=== PATIENT | male | born 1950 | race Caucasian/White ===

== ENCOUNTER 2021-10-11 21:13 | Inpatient (IN) | payer MEDICARE ==
[~2021-10-11] VITALS: Ht 177.8 cm; Wt 117.9 kg
[~2021-10-11 21:13] MED LIST: CEPH500 PO; SULTRIDS PO
[2021-10-11 22:44] LABS: BASOPHILS ABSOLUTE AUTO 0.05 K/mm3 (0.00-0.23); BASOPHILS PERCENT AUTO 0 % (0-2); EOSINOPHILS ABSOLUTE AUTO 0.35 K/mm3 (0.00-0.68); EOSINOPHILS PERCENT AUTO 2 % (0-6); Hematocrit 46.5 % (37.0-53.0); Hemoglobin 15.8 g/dL (13.5-17.5); IMMATURE GRAN ABSOLUTE AUTO 0.15 K/mm3 (0.00-0.10); IMMATURE GRAN PERCENT AUTO 1 % (0-1); LYMPHOCYTES ABSOLUTE AUTO 3.42 K/mm3 (0.84-5.20); LYMPHOCYTES PERCENT AUTO 20 % (21-46); MONOCYTES PERCENT AUTO 6 % (4-13); Mean Corpuscular HGB 30.2 pg (26.0-34.0); Mean Corpuscular Volume 89 fL (80-100); Mean Platelet Volume 10.7 fL (9.1-12.4); NEUTROPHILS ABSOLUTE AUTO 11.92 K/mm3 (1.96-9.15); NEUTROPHILS PERCENT AUTO 71 % (41-73); Platelet Count 246 K/mm3 (150-400); RDW Coefficient Variation 14.2 % (11.7-14.2); RDW Standard Deviation 46.3 fL (35.1-46.3); Red Blood Cell Count 5.24 M/mm3 (4.30-5.90); White Blood Cell Count 16.89 K/mm3 (4.00-11.30)
[2021-10-11 23:20] LABS: Albumin, Blood 3.6 g/dL (3.4-5.0); Bun/Creatinine Ratio 14.5 (12.0-20.0); Calcium, Blood 8.8 mg/dL (8.5-10.1); Creatinine, Blood 0.9 mg/dL (0.60-1.20); Globulin, Blood 3.6 g/dL (2.2-4.0); Potassium, Blood 3.8 mmol/L (3.5-5.5); Total Protein, Blood 7.2 g/dL (6.4-8.2)
[2021-10-12] MEDS ORDERED: OXYACE7.5T PO (00:31)
[2021-10-12] MEDS ORDERED: IBUP800 PO (00:31)
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
--- NOTE | 2021-10-12 06:17 | NUR ---
SHIFT SUMMARY NO ACUTE CHANGES SINCE PT CAME IN, SEE PREVIOUS NOTE. PT HAS INCREASED PAIN WHILE AT SLEEP, 8/10 PAIN LEVEL. PAIN MANAGED WITH DILAUDID 1MG/ML. CALL LIGHT WITHIN REACH. WILL NOTIFY ONCOMING NURSE FOR REPORT.
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
--- NOTE | 2021-10-13 04:04 | NUR ---
SHIFT SUMMARY A/OX4, IND TO BATHROOM. C/O GENERALIZED PAIN, MEDICATED PER EMAR. PT STATES THAT HE IS ANXIOUS ABOUT DISCHARGING. VSS, NO ACUTE CHANGES AT THIS TIME. BED IN LOWEST POSITION WITH CALL LIGHT IN REACH. WILL CONTINUE TO MONITOR AND REPORT TO ONCOMING RN.
--- NOTE | 2021-10-13 10:30 | NUR ---
DISCHARGE NOTE: PATIENT AND PATIENTS FRIEND WERE EDUCATED ON DISCHARGE INSTRUCTIONS. BOTH VERBALIZED UNDERSTANDING OF INSTRUCTIONS. PATIENTS FRIEND WAS GIVEN THE HARD PERSCRIPTIONS YESTERDAY AND HAS THEM FILLED READY AT PATIENTS HOME. IV WAS TAKEN OUT AND WNL. PAIN IS MANAGED WITH PO PAIN MEDICATIONS. PATIENTS LUNG SOUNDS ARE CLEAR. PATIENT IS USING THE INCENTIVE SPIROMETER OFTEN POSSIBLE. DENIES CHEST PAIN OR SOB. ABRASIONS ON THE RIGHT ARM AND LEG ARE OPEN TO AIR. PATIENT IS DRESSED AND HAS PERSONAL ITEMS GATHERED. PATIENT WAS WHEELCHAIRED OUT TO THE FRIENDS CAR TO BE TAKEN HOME. HE WILL FOLLOW UP WITH DR. MARTELL IN ABOUT TWO WEEKS FOR A CT SINCE THE PATIENT HAS A MASS THAT IS ON TOP OF HIS KIDNEY ADRENAL GLAND.
== END 2021-10-13 10:57 | disposition home or self-care (01) | DRG 185 ==
LOC: ER 21:13 → SURS 21:14 → MEDS 21:14 → SURS 10-12 03:55
PROVIDERS: Emergency Medicine; ADMIT Surgery
DX: S22.41XA Multiple fractures of ribs, right side, initial encounter for closed fracture (principal); S40.811A Abrasion of right upper arm, initial encounter; S60.511A Abrasion of right hand, initial encounter; S40.211A Abrasion of right shoulder, initial encounter; R74.8 Abnormal levels of other serum enzymes; V89.2XXA Person injured in unspecified motor-vehicle accident, traffic, initial encounter; E27.9 Disorder of adrenal gland, unspecified; S80.211A Abrasion, right knee, initial encounter; E66.9 Obesity, unspecified; Z68.37 Body mass index [BMI] 37.0-37.9, adult
CPT/HCPCS: 36415; 71045; 71260; 74177; 80053; 83690; 85025; 96374-59; 96375; 96376; 99285-25; A9270; G0378; J1170; J1650; J2405; J3010; Q9967

== ENCOUNTER → 2023-01-02 | Outpatient (CLI) | payer MEDICARE ==
[~2023-01-02] MED LIST changes: +IBUP800 PO; +OXYACE7.5T PO
[2023-01-02 17:10] LABS: Appearance, Urine Clear (Clear); Bilirubin, Urine Neg (Neg); Blood, Urine Neg (Neg); Color, Urine Yellow (P-Yellow); Glucose Qualitative, Urine Neg (Neg); Ketones, Urine Neg (Neg); Leukocyte Esterase, Urine Neg (Neg); Nitrite, Urine Neg (Neg); Protein, Urine Neg (Neg); Specific Gravity, Urine 1.015 (1.003-1.022); Urobilinogen, Urine NORM (Normal)
== END | disposition home or self-care (01) ==
LOC: LAB SHORT 14:30 → LAB 14:30 → LAB FUT 01-02 16:30 → EDSTATUS 01-02 16:30
PROVIDERS: Internal Medicine Nephrology
DX: N39.0 Urinary tract infection, site not specified (principal)
CPT/HCPCS: 81003; 87086

== ENCOUNTER → 2023-01-19 | Outpatient (CLI) | payer MEDICARE | END | disposition home or self-care (01) | LOC: LAB 08:22 → LAB SHORT 08:22 | DX: N39.0 Urinary tract infection, site not specified (principal) | CPT/HCPCS: 87086 ==

== ENCOUNTER → 2023-02-27 | Outpatient (CLI) | payer MEDICARE ==
[2023-02-27 12:39] LABS: Creatinine Urine 75.9 mg/dL (27.00-270.00); Protein, Urine Quantitative 7.4 mg/dL (0.0-11.9)
== END ==
LOC: LAB 10:31 → LAB SHORT 10:31
PROVIDERS: Internal Medicine Nephrology
DX: N18.30 Chronic kidney disease, stage 3 unspecified (principal)
CPT/HCPCS: 81050; 82043; 82570; 84156

== ENCOUNTER → 2023-10-10 | Outpatient (CLI) | payer MEDICARE ==
[2023-10-10 13:16] LABS: BASOPHILS ABSOLUTE AUTO 0.06 K/mm3 (0.00-0.23); BASOPHILS PERCENT AUTO 1 % (0-2); EOSINOPHILS ABSOLUTE AUTO 0.41 K/mm3 (0.00-0.68); EOSINOPHILS PERCENT AUTO 4 % (0-6); Hematocrit 46.2 % (37.0-53.0); Hemoglobin 15.8 g/dL (13.5-17.5); IMMATURE GRAN ABSOLUTE AUTO 0.02 K/mm3 (0.00-0.10); IMMATURE GRAN PERCENT AUTO 0 % (0-1); LYMPHOCYTES ABSOLUTE AUTO 3.25 K/mm3 (0.84-5.20); LYMPHOCYTES PERCENT AUTO 34 % (21-46); MONOCYTES PERCENT AUTO 8 % (4-13); Mean Corpuscular HGB 30.4 pg (26.0-34.0); Mean Corpuscular HGB Conc 34.2 g/dL (31.5-36.5); Mean Corpuscular Volume 89 fL (80-100); Mean Platelet Volume 11.2 fL (9.1-12.4); NEUTROPHILS ABSOLUTE AUTO 5.01 K/mm3 (1.96-9.15); NEUTROPHILS PERCENT AUTO 53 % (41-73); Platelet Count 262 K/mm3 (150-400); RDW Coefficient Variation 13.9 % (11.7-14.2); RDW Standard Deviation 45.1 fL (35.1-46.3); White Blood Cell Count 9.55 K/mm3 (4.00-11.30)
[2023-10-10 14:36] LABS: Albumin, Blood 3.8 g/dL (3.4-5.0); Albumin/Globulin Ratio 1.1 (0.8-1.8); Bun/Creatinine Ratio 14.8 (12.0-20.0); Creatinine, Blood 0.81 mg/dL (0.60-1.20); Globulin, Blood 3.5 g/dL (2.2-4.0); Potassium, Blood 3.9 mmol/L (3.5-5.5); Total Protein, Blood 7.3 g/dL (6.4-8.2)
== END | disposition home or self-care (01) ==
LOC: LAB SHORT 12:04
PROVIDERS: Nurse Practitioner Family
DX: I10 Essential (primary) hypertension (principal)
CPT/HCPCS: 80053; 85025

== ENCOUNTER → 2024-03-14 | Outpatient (CLI) | payer MEDICARE ==
[~2024-03-14] MED LIST changes: +GABA300 PO
== END ==
LOC: LAB 16:11 → LAB SHORT 16:11
DX: N39.0 Urinary tract infection, site not specified (principal)
CPT/HCPCS: 87086

== ENCOUNTER 2024-03-15 07:25 | Emergency (ER) | payer MEDICARE ==
[~2024-03-15] VITALS: Ht 177.8 cm; Wt 109.0 kg
[~2024-03-15 07:25] MED LIST changes: -GABA300 PO
[2024-03-15 08:33] LABS: Source, Urine Clean Catch
[2024-03-15 08:36] LABS: Bilirubin, Urine Neg (Neg); Blood, Urine Neg (Neg); Glucose Qualitative, Urine Neg (Neg); Ketones, Urine Neg (Neg); Leukocyte Esterase, Urine Neg (Neg); Nitrite, Urine Neg (Neg); Protein, Urine Neg (Neg); Urobilinogen, Urine NORM (Normal)
[2024-03-15 08:43] LABS: Appearance, Urine Clear (Clear); Color, Urine Yellow (P-Yellow)
[2024-03-15] MEDS ORDERED: GABA300 PO (09:47)
[2024-03-15 10:01] VITALS: BP 180/116
== END 2024-03-15 10:02 | disposition home or self-care (01) ==
LOC: ER 07:25
PROVIDERS: Student in an Organized Health Care Education/Training Program
DX: M54.50 Low back pain, unspecified (principal); Z87.442 Personal history of urinary calculi
CPT/HCPCS: 81003; 99283

== ENCOUNTER 2024-07-16 11:24 | Day surgery (SDC) | payer MEDICARE ==
[~2024-07-16] VITALS: Ht 177.8 cm; Wt 108.7 kg
[~2024-07-16 11:24] MED LIST changes: +GABA300 PO; +Lactated Ringer's 1,000 ML IV ONE; +propofoL 50 ML IV ONE
[2024-07-16] MEDS ORDERED: Aspir 8181 MG PO (11:46)
[2024-07-16] MEDS ORDERED: Lactated Ringer's 1,000 ML IV ONE (12:41)
[2024-07-16] MEDS ORDERED: NS 500 ML IV ONE (14:08)
[2024-07-16] MEDS ORDERED: propofoL 50 ML IV ONE (14:38)
[2024-07-16 14:54] VITALS: BP 156/86
== END 2024-07-16 15:05 | disposition home or self-care (01) ==
LOC: ORSCSDS 11:24
PROVIDERS: Surgery
PROC: 0DBL8ZX Excision of Transverse Colon, Via Natural or Artificial Opening Endoscopic, Diagnostic (ICD-10-PCS; principal; 2024-07-16 13:30)
PROC: 0DBH8ZX Excision of Cecum, Via Natural or Artificial Opening Endoscopic, Diagnostic (ICD-10-PCS; principal; 2024-07-16 13:30)
PROC: 0DB48ZX Excision of Esophagogastric Junction, Via Natural or Artificial Opening Endoscopic, Diagnostic (ICD-10-PCS; principal; 2024-07-16 13:30)
PROC: 0DB78ZX Excision of Stomach, Pylorus, Via Natural or Artificial Opening Endoscopic, Diagnostic (ICD-10-PCS; principal; 2024-07-16 13:30)
DX: R10.13 Epigastric pain (principal); Z12.11 Encounter for screening for malignant neoplasm of colon; K22.10 Ulcer of esophagus without bleeding; D12.0 Benign neoplasm of cecum; D12.3 Benign neoplasm of transverse colon; K20.90 Esophagitis, unspecified without bleeding; K29.70 Gastritis, unspecified, without bleeding; K57.30 Diverticulosis of large intestine without perforation or abscess without bleeding; Z79.899 Other long term (current) drug therapy; Z87.891 Personal history of nicotine dependence; K80.20 Calculus of gallbladder without cholecystitis without obstruction
CPT/HCPCS: 88305; 88312; 88342; J2704; J7120

== ENCOUNTER 2024-11-01 08:32 | Day surgery (SDC) | payer MEDICARE ==
[~2024-11-01] VITALS: Ht 177.8 cm; Wt 109.2 kg
[~2024-11-01 08:32] MED LIST changes: +Aspir 8181 MG PO; -Lactated Ringer's 1,000 ML IV ONE; -propofoL 50 ML IV ONE
[2024-11-01 12:26] VITALS: BP 136/94
== END 2024-11-01 12:10 | disposition home or self-care (01) ==
LOC: ORSCSDS 08:32
PROVIDERS: Surgery
PROC: 0DB48ZX Excision of Esophagogastric Junction, Via Natural or Artificial Opening Endoscopic, Diagnostic (ICD-10-PCS; principal; 2024-11-01 10:30)
PROC: 0DB98ZX Excision of Duodenum, Via Natural or Artificial Opening Endoscopic, Diagnostic (ICD-10-PCS; principal; 2024-11-01 10:30)
DX: K22.89 Other specified disease of esophagus (principal); R10.11 Right upper quadrant pain; K29.80 Duodenitis without bleeding; K22.10 Ulcer of esophagus without bleeding; Z87.891 Personal history of nicotine dependence; Z79.82 Long term (current) use of aspirin; Z79.899 Other long term (current) drug therapy
CPT/HCPCS: 88305; 88312; J2704; J7120

== ENCOUNTER 2024-12-25 03:57 | Emergency (ER) | payer MEDICARE ==
[~2024-12-25] VITALS: Ht 177.8 cm; Wt 59.0 kg
[2024-12-25 04:14] VITALS: BP 162/90
[2024-12-25] MEDS ORDERED: Robaxin750 MG PO (04:37)
== END 2024-12-25 04:51 | disposition home or self-care (01) ==
LOC: ER 03:57
DX: S39.012A Strain of muscle, fascia and tendon of lower back, initial encounter (principal); X58.XXXA Exposure to other specified factors, initial encounter; Z79.82 Long term (current) use of aspirin
CPT/HCPCS: 99282; A9270

== ENCOUNTER → 2025-03-05 | Outpatient (CLI) | payer MEDICARE ==
[~2025-03-05] MED LIST changes: +Robaxin750 MG PO
[2025-03-05 10:58] LABS: BASOPHILS ABSOLUTE AUTO 0.04 K/mm3 (0.00-0.23); BASOPHILS PERCENT AUTO 0 % (0-2); EOSINOPHILS ABSOLUTE AUTO 0.47 K/mm3 (0.00-0.68); EOSINOPHILS PERCENT AUTO 5 % (0-6); Hematocrit 46.3 % (37.0-53.0); Hemoglobin 15.9 g/dL (13.5-17.5); IMMATURE GRAN ABSOLUTE AUTO 0.02 K/mm3 (0.00-0.10); IMMATURE GRAN PERCENT AUTO 0 % (0-1); LYMPHOCYTES ABSOLUTE AUTO 3.55 K/mm3 (0.84-5.20); LYMPHOCYTES PERCENT AUTO 37 % (21-46); MONOCYTES ABSOLUTE AUTO 0.94 K/mm3 (0.16-1.47); MONOCYTES PERCENT AUTO 10 % (4-13); Mean Corpuscular HGB Conc 34.3 g/dL (31.5-36.5); Mean Corpuscular Volume 89 fL (80-100); NEUTROPHILS ABSOLUTE AUTO 4.62 K/mm3 (1.96-9.15); NEUTROPHILS PERCENT AUTO 48 % (41-73); NRBC ABSOLUTE 0.00 K/mm3 (0.00-0.02); NRBC Auto 0.0 /100 WBC (0.0-0.2); Platelet Count 253 K/mm3 (150-400); RDW Coefficient Variation 14.2 % (11.7-14.2); RDW Standard Deviation 46.1 fL (35.1-46.3)
[2025-03-05 11:09] LABS: Alanine Aminotransfer (ALT/SGP 30 U/L (12-78); Albumin, Blood 3.7 g/dL (3.4-5.0); Albumin/Globulin Ratio 1.0 (0.8-1.8); Anion Gap 9 mmol/L (3-11); Aspartate Aminotrans (AST/SGOT 14 U/L (12-37); Bilirubin, Total 0.9 mg/dL (0.1-1.0); Blood Urea Nitrogen 10 mg/dL (8-24); CHOL/HDL RATIO 3.9; CO2, Blood 26 mmol/L (21-32); Calcium, Blood 9.0 mg/dL (8.5-10.1); Chloride, Blood 106 mmol/L (98-108); Cholesterol 216 mg/dL (50-200); Creatinine, Blood 0.78 mg/dL (0.60-1.20); Globulin, Blood 3.6 g/dL (2.2-4.0); Glucose, Blood 99 mg/dL (70-99); HDL Cholesterol 56 mg/dL (>39); LDL/HDL RATIO 2.3; Low Density Lipoprotein Chol 128 mg/dL (0-110); Potassium, Blood 4.1 mmol/L (3.5-5.5); Sodium, Blood 137 mmol/L (136-145); Total Protein, Blood 7.3 g/dL (6.4-8.2); Triglycerides 160 mg/dL (30-160); Very Low Density Lipoprot Chol 32 mg/dL (6-32)
== END | disposition home or self-care (01) ==
LOC: LAB SHORT 10:03 → LAB 10:03
PROVIDERS: Nurse Practitioner Family
DX: Z13.6 Encounter for screening for cardiovascular disorders (principal); R06.02 Shortness of breath; R07.9 Chest pain, unspecified
CPT/HCPCS: 80053; 80061; 83880; 84484; 85025